=== PATIENT | male | born 1965 | race Caucasian/White ===

== ENCOUNTER → 2020-11-06 | Day surgery (SDC) | payer OTHER ==
[~2020-11-06] MED LIST: ALLEGRA ALLERG180 MG PO; ASCORBIC ACID500 MG PO; CALCIUM + VITA1 EACH PO; CENTRUM COMPLE1 EACH PO; FISH OIL 1,0001 EAC1 PO; PROSCAR5 MG PO; TAMSULOSIN HCL0.4 MG PO; VITAMIN B-121000 MC1 PO; VITAMIN D310 MC4 PO; ZINC50 M2 PO
[2020-11-06 07:35] LABS: HCT 39.3 % (42.0-52.0); HGB 13.4 g/dl (13.2-18.0); MCH 32.6 pg (25.0-31.0); MCHC 34.1 g/dL (32.0-36.0); MCV 95.6 fL (78.0-100.0); MPV 10.1 fL (6.0-9.5); RBC 4.11 M/uL (4.70-6.00); RDW 12.2 % (11.5-14.0); WBC 4.9 K/uL (4.0-10.5)
[2020-11-06 07:52] LABS: ALBUMIN 4.3 g/dL (3.4-5.0); BILIRUBIN - TOTAL 2.6 mg/dL (0.2-1.0); BUN/CREAT RATIO (CALC) 18.3 RATIO; CREATININE 0.6 mg/dL (0.67-1.17); GLOBULIN (CALCULATION) 3.2 g/dL; POTASSIUM 3.8 mmol/L (3.5-5.1); TOTAL PROTEIN 7.5 g/dL (6.4-8.2)
== END | disposition home or self-care (01) ==
LOC: FAS 06:56
PROVIDERS: Surgery
DX: K29.70 Gastritis, unspecified, without bleeding (principal); K58.9 Irritable bowel syndrome, unspecified; N40.0 Benign prostatic hyperplasia without lower urinary tract symptoms; F17.219 Nicotine dependence, cigarettes, with unspecified nicotine-induced disorders; Z87.09 Personal history of other diseases of the respiratory system; Z82.3 Family history of stroke; Z82.49 Family history of ischemic heart disease and other diseases of the circulatory system
CPT/HCPCS: 36415; 80053; J2250; J2704; J7120